=== PATIENT | female | born 1980 | race Caucasian/White ===

== ENCOUNTER 2019-07-03 12:59 | Inpatient (IN) | payer OTHER ==
[2019-07-03] MEDS ORDERED: Lactated Ringers 1000 ML Bag* 1,000 ML IV ONE (13:12)
[2019-07-03] MEDS ORDERED: Buffered Lidocaine 1% SYRIN* 1 ML/SYRINGE INTRADERM ONE (13:12)
[2019-07-03] MEDS ORDERED: Misoprostol TAB* 100 MCG VAGINAL ONE (13:51)
--- NOTE | 2019-07-03 13:58 | HP ---
General Information - Reason for Visit Pt sent in from office for cervical ripening/ IOL for gestational HTN vs preeclampsia at 39 0/7 weeks gestation. - General Information Maternal Age: 39 Grav: 2 Para: 1 SAB: 0 IEA: 0 Estimated Due Date: 07/10/19 Determined By: LMP Gestational Age in Weeks/Days: 39 0/7 Maternal Blood Type and Rh: B Positive - Results this Serology/RPR Result: Non-Reactive Rubella Result: Immune HBsAg Result: Negative HIV Result: Negative GBS Culture Result: Negative Past Medical History Delivery History: Hx Uncomplicated Vaginal Delivery Pertinent Past Medical History: Non-Contributory Pertinent Past Surgical History: See Records - Foot surgery 2000 Pertinent Family History: See Records - Pt's mother delivered her at 43 weeks, weighed 11# - Antepartal Records Antepartal Records: Reviewed, Complicated by: - AMA, IVF , gestational HTN vs preeclampsia Review of Systems Constitutional: Comfortable CV Complaint: No Respiratory: Shortness of Breath: No Gastrointestinal: No Nausea/Vomiting, Normal Bowel Movement Genitourinary: No Dysuria, No Bleeding, No Leaking Fluid Musculoskeletal: No Complaint, No Epigastric Pain Neurological: No Visual Changes, Headache Movement: Normal Exam T-97.7, P-87, R-18, BP- 143/91, O2-98% - Measurements Height: 5 ft 4 in Weight: 96.615 kg Body Mass Index (BMI): 36.6 Pre- Weight: 81.647 kg - Exam Breast: Breast Exam Deferred CVA: No CVA Tenderness Extremities: Edema - mild trace pedal edema Heart: Normal Rhythm/Heart Sounds HEENT: No Significant Findings Lungs: Clear Bilaterally Rectal: Rectal Exam Deferred Reflexes: DTR 2+ Thyroid: No Thyromegaly - Abdominal Exam Abdomen Exam: Non-Tender, Fundal Height Consistent with Dates - Ultrasound/Biophysical Profile Ultrasound Status: Not Done Targeted Exam Findings See L&D Outpatient Visit Provider Note for Findings: N/A Estimated Weight: 8# Cervical Exam: 1cm Effacement: Thick Station: High Presenting Part: Vertex Membrane Status: Intact Bleeding/Discharge: None EFM Findings - External Monitor Findings Baseline Heart Rate: 130 External Monitor Findings: Accelerations Present, No Pattern of Variable or Late Decelerations, Variability Moderate, Baseline Stable Contractions: None Assessment/Plan - Assessment 39 year old at 39 0/7 weeks gestation, with elevated BPs, gestational HTN vs PEC. No evidence of acidemia. Cervix currently unfavorable. - Obstetrical Risk Factors Obstetrical Risk Factors: Gestational Hypertension - Plan Plan: Cervical Ripening, Admit - Anticipate Vaginal Delivery - Date/Time of Admission Date of Admission: 07/03/19 Time of Admission: 13:45
[2019-07-03] MEDS ORDERED: Lactated Ringers 1000 ML Bag* 1,000 ML IV SCH ×2 (14:00→21:00)
[2019-07-03 14:44] LABS: ABS Lymphocytes 1.3 10^3/ul (1.0-4.8); ABS Monocytes 0.4 10^3/ul (0-0.8); ABS Neutrophils 8.2 10^3/ul (1.5-7.7); Eosinophil % 0.5 %; Hematocrit 32 % (35-47); Hemoglobin 10.7 g/dL (12.0-16.0); Lymphocyte % 13.4 %; Mean Corpuscular HGB Conc 33 g/dL (31-36); Mean Corpuscular Hemoglobin 26 pg (27-31); Mean Corpuscular Volume 79 fL (80-97); Mean Platelet Volume 8.3 fL (7.4-10.4); Platelet Count 321 10^3/uL (150-450); Red Blood Count 4.11 10^6 /uL (3.70-4.87); Red Cell Distribution Width 15 % (10-15)
[2019-07-03 15:02] LABS: ALT 9 U/L (7-52); Albumin 3.2 g/dL (3.2-5.2); Alkaline Phosphatase 185 U/L (34-104); BUN/Creatinine Ratio 10.7 (8-20); Blood Urea Nitrogen 6 mg/dL (6-24); CO2 Carbon Dioxide 20 mmol/L (22-32); Calcium 8.2 mg/dL (8.6-10.3); Chloride 107 mmol/L (101-111); EGFR African American 147.4 (>60); EGFR Non-African American 121.8 (>60); Globulin 3.3 g/dL (2-4); Glucose 117 mg/dL (70-100); Sodium 136 mmol/L (135-145); Total Protein 6.5 g/dL (6.4-8.9); Uric Acid 4.4 mg/dL (2.3-6.6)
--- NOTE | 2019-07-03 15:02 | PN ---
Progress Note - Progress Note Date of Service: 07/03/19 Note: Discussed options for cervical ripening with pt. Decision made to do one dose of vaginal misoprostol. Will reassess after 4 hours or as needed. CBC unremarkable, other labs pending.
[2019-07-03 15:10] LABS: Urine Appearance Cloudy; Urine Bilirubin Negative (Negative); Urine Blood Negative (Negative); Urine Color Straw; Urine Glucose Negative (Negative); Urine Ketones Negative (Negative); Urine Nitrite Negative (Negative); Urine Protein Negative (Negative); Urine Specific Gravity 1.003 (1.010-1.030); Urine Urobilinogen Negative (Negative)
[2019-07-03 15:14] LABS: Urine Benzodiazepine Screen None Detected (None Detect); Urine Opiates Screen None Detected (None Detect)
[2019-07-03 15:18] LABS: Urine Bacteria 1+ (Absent); Urine Red Blood Cell Trace(0-2/hpf) (Absent); Urine Squamous Epithelial Cell Present (Absent); Urine White Blood Cell Trace(0-5/hpf) (Absent)
[2019-07-03 15:37] LABS: Anion Gap 9 mmol/L (2-11)
--- NOTE | 2019-07-03 16:39 | PN ---
Progress Note - Progress Note Date of Service: 07/03/19 SOAP: Subjective: Pt comfortable, a couple ctx noted on the monitor but pt was not aware of them. Objective: Cervix at last exam: 1 cm/ 50%/ -2/ vtx. FHR: Baseline 135/ moderate variability/ + accels/ no decels UCs: mild, irregular Negative proteinuria PEC labs WNL Assessment: 39 year old at 39 0/7 weeks gestation with gestational hypertension. No evidence of acidemia. Plan: Vaginal misoprostol placed at 1500. Will recheck after 4 hours or as needed.
[2019-07-03] MEDS ORDERED: OBEPIDURAL* 0 ML EPIDURAL ONE (18:46)
--- NOTE | 2019-07-03 18:58 | PN ---
Progress Note - Progress Note Date of Service: 07/03/19 SOAP: Subjective: Pt robby frequently, very uncomfortable. Feels ready for epidural. Reports leaking clear fluid Objective: ROM plus positive FHR: Baseline 140/ moderate variability/ + accels/ no decels UCs: 2-3 minutes BP 157/94 Cervix: 3cm/ 90%/ 0 station/ vtx Assessment: Pt in active labor. No evidence of acidemia. BP elevated, likely due to pain, but not critically so. Plan: Anesthesia notified to provide labor epidural. Will continue to monitor progress , BPs.
[2019-07-03] MEDS ORDERED: Oxytocin in LR* 20 UNITS/1,000 ML BAG IVPB ONE (19:50)
[2019-07-03] MEDS ORDERED: Acetaminophen TAB* 325 MG PO PRN (20:35)
[2019-07-03] MEDS ORDERED: Glycerin ADULT SUPP PR PRN (20:35)
[2019-07-03] MEDS ORDERED: Ibuprofen TAB* 400 MG PO PRN (20:35)
--- NOTE | 2019-07-03 20:48 | PROCNOTE ---
[facility] OB: Delivery Note - Delivery A Date of : 07/03/19 Time of : 19:45 Evans Sex: Male Weight at : 3.525 kg Score 1 Minute: 9 Score 5 Minutes: 9 Gestational Age in Weeks and Days at Delivery: 39 Weeks and 0 Days Delivery Method: Spontaneous Vaginal Labor: Induced Did Patient attempt ?: N/A, No Previous Amniotic Fluid: Clear Estimated Blood Loss: 300 Anesthesia/Analgesia: Nitrous-Labor Delivered By: Mikayla Cleaning - Nursery Level of Nursery: Regular/Bedside - Perineum Perineal Injury: 1st Degree Perineal Repair: By Delivering Practioner - Events Delivery Events of Note: Pitocin Only After Delivery, Shoulder Dystocia - resolved with Tip, suprapubic, and adduction of the anterior shoulder Delivery Events of Note Comment: 30 second shoulder dystocia. Tip and superpubic pressure performed. - Additional Delivery Notes Additional Delivery Notes: Pt admitted to L&D for cervical ripening and IOL for elevated BP in office. Negative proteinuria and labs WNL so pt diagnosed with gestational HTN. Cervical ripening initiated with single dose of vaginal misoprostol. About 2 hours after it was placed pt began to experience intense ctx along with SROM to clear fluid. Pt soon requested an epidural. By the time anesthesiologist arrived pt was rapidly dilating so decision made to attempt intrathecal. Despite multiple attempts anesthesiologist was unable to perform intrathecal. At this point pt was clearly pushing so decision made to attempt delivery. Pt provided with nitrous oxide. Pt pushed spontaneously with good effort and rapid descent. Pt coached through slow controlled delivery of the head. Gentle traction did not deliver shoulders so pt placed in Tip position. This did not result in delivery so emergency castro activated and suprapubic pressure initiated. Anterior shoulder adducted gently and shoulders released and baby delivered. Total time from head to body less than one minute. cried spontaneously and was placed on maternal abdomen, dried and stimulated. Good tone and HR> 100 noted. After gush of blood suggested placental separation had begun cord clamped x2 and cut. Placenta soon delivered with gentle cord traction. Placenta noted to be heart shaped with some calcification, intact. Pitocin initiated and 250 cc/ hr. Bleeding minimal. Inspection of the perineum revealed small first degree laceration. Sutured using 3-0 vicryl absorbable suture resulting in good hemostasis and tissue approximation. Mother and infant stable at this time, anticipate normal course.
[2019-07-03] MEDS ORDERED: Oxytocin in LR* 20 UNITS/1,000 ML BAG IVPB SCH (21:00)
[2019-07-03] MEDS: Ibuprofen TAB* 400 MG PO PRN (21:15)
[2019-07-03] MEDS: Dibucaine 1% 28.35 GM TUBE PR PRN (21:16)
[2019-07-03] MEDS: Witch Hazel PAD* JAR TOPICAL PRN (21:16)
[2019-07-03] MEDS: Docusate CAP* 100 MG PO SCH (21:16)
[2019-07-03] MEDS ORDERED: Lidocaine 1% INJ* 10 MG/ML 30 ML SDV ONE (21:56)
[2019-07-04 00:44] LABS: Potassium Redraw 3.7 mmol/L (3.5-5.0)
[2019-07-04] MEDS: Ibuprofen TAB* 400 MG PO PRN ×4 (04:15→23:56)
[2019-07-04 06:29] LABS: ABS Basophils 0.1 10^3/ul (0-0.2); ABS Lymphocytes 1.9 10^3/ul (1.0-4.8); ABS Monocytes 0.7 10^3/ul (0-0.8); ABS Neutrophils 12.5 10^3/ul (1.5-7.7); Eosinophil % 0.2 %; Hematocrit 29 % (35-47); Hemoglobin 9.2 g/dL (12.0-16.0); Lymphocyte % 12.3 %; Mean Corpuscular HGB Conc 32 g/dL (31-36); Mean Corpuscular Hemoglobin 25 pg (27-31); Mean Corpuscular Volume 79 fL (80-97); Mean Platelet Volume 7.9 fL (7.4-10.4); Platelet Count 270 10^3/uL (150-450); Red Blood Count 3.65 10^6 /uL (3.70-4.87); Red Cell Distribution Width 15 % (10-15); White Blood Count 15.1 10^3/uL (3.5-10.8)
[2019-07-04] MEDS: Ferrous Gluconate TAB* 324 MG TAB PO SCH ×2 (08:11→20:54)
[2019-07-04] MEDS: Docusate CAP* 100 MG PO SCH ×3 (08:12→20:54)
[2019-07-04] MEDS ORDERED: Ibuprofen TAB* 600 MG PO PRN (10:12)
[2019-07-04] MEDS: Witch Hazel PAD* JAR TOPICAL PRN (17:24)
[2019-07-04] MEDS: Dibucaine 1% 28.35 GM TUBE PR PRN (17:24)
[2019-07-04 19:55] VITALS: BP 136/83
[2019-07-05] MEDS: Ibuprofen TAB* 400 MG PO PRN ×2 (06:06→12:39)
[2019-07-05] MEDS: Docusate CAP* 100 MG PO SCH ×2 (08:20→12:39)
[2019-07-05] MEDS: Ferrous Gluconate TAB* 324 MG TAB PO SCH (08:20)
== END 2019-07-05 15:32 | disposition home or self-care (01) | DRG 807 ==
LOC: MCHOBOUT 12:59 → MCHOB 14:26
PROVIDERS: ADMIT Midwife; ATTEND Midwife
PROC: 10E0XZZ Delivery of Products of Conception, External Approach (ICD-10-PCS; principal; 2019-07-03)
PROC: 3E033VJ Introduction of Other Hormone into Peripheral Vein, Percutaneous Approach (ICD-10-PCS; 2019-07-03)
PROC: 0HQ9XZZ Repair Perineum Skin, External Approach (ICD-10-PCS; 2019-07-03)
DX: O13.4 Gestational [pregnancy-induced] hypertension without significant proteinuria, complicating childbirth (principal); Z37.0 Single live birth; O66.0 Obstructed labor due to shoulder dystocia; O70.0 First degree perineal laceration during delivery; O90.81 Anemia of the puerperium; D64.9 Anemia, unspecified; Z3A.39 39 weeks gestation of pregnancy
CPT/HCPCS: 36415; 80053; 80307; 81003; 81015; 84112; 84550; 85025; 86850; 86900; 86901; 87086; A9270-GY; G0480; S0191